=== PATIENT | female | born 2000 | race Two or more races ===

== ENCOUNTER 2019-09-17 08:10 | Day surgery (SDC) | payer OTHER ==
[2019-09-17] VITALS (9 sets, daily range): BP systolic 102–121; BP diastolic 56–80
[~2019-09-17] VITALS: Ht 165.1 cm; Wt 75.7 kg
--- NOTE | 2019-09-17 07:22 | Pre-Procedure Note/Attestation ---
Pre-Procedure Note/Attestation Complete Prior to Procedure Planned Procedure: left Procedure Narrative: knee diagnostic arthroscopy, possible menisectomy, synovectomy, chondroplasty Indications for Procedure Pre-Operative Diagnosis: left knee internal derangment Attestation I attest that I discussed the nature of the procedure; its benefits; risks and complications; and alternatives (and the risks and benefits of such alternatives ), prior to the procedure, with the patient (or the patient's legal residential sales representative). I attest that, if there was a reasonable possibility of needing a blood transfusion, the patient (or the patient's legal residential sales representative) was given the [facility] standardized written summary, pursuant to the [place] Blood Safety Act ([place] Health and Safety Code # 1645, as amended). I attest that I re-evaluated the patient just prior to the surgery and that there has been no change in the patient's H&P, except as documented below: Dixon Valdez MD Sep 17, 2019 07:22
--- NOTE | 2019-09-17 07:23 | Operative Note - PDOC ---
Operative Note Operative Note Pre-op Diagnosis: left knee internal derangment Procedure: see op report Post-op Diagnosis: same as pre-op plus Operative Findings: consistent w/pre-op dx studies Anesthesia: MAC Specimen: none Complications: none Condition: stable Estimated Blood Loss: none Implant(s) used?: No Dixon Valdez MD Sep 17, 2019 07:23
[~2019-09-17 08:10] MED LIST: D5 1/2NS 1,000 ML IV SCH; HYDROcodone/Acetamin 5/325 tab ORAL PRN; HYDROmorphone 1mg/ml Carpuject SUBQ PRN; Tylenol #3 tab (300mg/30mg) ORAL PRN; ceFAZolin 1gm IVPB IVPB ONE; oxyCONTIN 20mg tab ORAL ONE
[2019-09-17] MEDS ORDERED: oxyCONTIN 20mg tab ORAL ONE (10:29)
[2019-09-17] MEDS ORDERED: Ketorolac 30mg Inj ONE ×2 (12:32→14:06)
[2019-09-17] MEDS ORDERED: Kenalog-40 1ml Vial ONE (12:32)
[2019-09-17] MEDS ORDERED: Lidocaine 1% 10mg/ml/Epi 0.005mg/ml 30ml vial INJ ONE (12:33)
[2019-09-17] MEDS ORDERED: Duramorph PF 5mg/10ml amp ONE (12:33)
[2019-09-17] MEDS ORDERED: Bupivacaine 0.25% Inj 30ml INJ ONE (12:33)
[2019-09-17] MEDS ORDERED: Sodium Chloride 10ml vial INJ ONE (12:40)
[2019-09-17] MEDS ORDERED: fentaNYL 100 mcg/2 mL IV ONE (12:40)
[2019-09-17] MEDS ORDERED: Dexamethasone 4mg/ml vial ONE (12:40)
[2019-09-17] MEDS ORDERED: Propofol 200mg/20ml IV ONE (12:40)
[2019-09-17] MEDS ORDERED: Lidocaine 1% MPF 10mg/ml 5ml ONE (12:40)
[2019-09-17] MEDS ORDERED: LR 1000ml 1,000 ML IVLG SCH (12:56)
[2019-09-17] MEDS ORDERED: Metoclopramide 10mg/2ml Inj IVP PRN (13:00)
[2019-09-17] MEDS ORDERED: Labetalol 5mg/ml 20ml vial IV PRN (13:00)
[2019-09-17] MEDS ORDERED: HYDROcodone/Acetamin 7.5/325 tab ORAL PRN (13:00)
[2019-09-17] MEDS ORDERED: DiphenhydrAMINE 50mg/ml Inj IVP PRN (13:00)
[2019-09-17] MEDS ORDERED: Ketorolac 30mg Inj IV PRN ×2 (13:00)
[2019-09-17] MEDS ORDERED: LR 1000ml ONE (13:00)
[2019-09-17] MEDS ORDERED: LORazepam Inj 2mg/ml 1ml IV PRN (13:00)
[2019-09-17] MEDS ORDERED: oxyCODONE HCL/Acetaminophen 5/325mg ORAL PRN (13:00)
[2019-09-17] MEDS ORDERED: Atropine Sulfate 0.4mg/ml inj IVP PRN (13:00)
[2019-09-17] MEDS ORDERED: Acetaminophen (Non formulary) 100 ML IV ONE (13:00)
[2019-09-17] MEDS ORDERED: Midazolam 2mg/2ml Inj IVP PRN (13:00)
[2019-09-17] MEDS ORDERED: HYDROcodone/Acetamin 5/325 tab ORAL PRN (13:00)
[2019-09-17] MEDS ORDERED: fentaNYL 100 mcg/2 mL IV PRN (13:00)
[2019-09-17] MEDS ORDERED: Hydromorphone 0.5mg/0.5ml inj IVP PRN (13:00)
[2019-09-17] MEDS ORDERED: NS Irrig 4000ml IRRIG ONE (13:03)
--- NOTE | 2019-09-17 13:03 | Anethesia Preoperative Eval ---
Anesthesia Pre-op PMH/ROS General Date of Evaluation: Sep 17, 2019 Time of Evaluation: 11:42 Anesthesiologist: Eric ASA Score: ASA 1 Mallampati Score Class I : Soft palate, uvula, fauces, pillars visible Class II: Soft palate, uvula, fauces visible Class III: Soft palate, base of uvula visible Class IV: Only hard plate visible Mallampati Classification: Class I Surgeon: Valdez Diagnosis: L Knee Pain Surgical Procedure: L Knee Arthroscopy Anesthesia History: none Family History: no anesthesia problems Allergies: Coded Allergies: SULFA (SULFONAMIDE ANTIBIOTICS) (Verified Allergy, Unknown, 09/16/19) Medications: see eMAR Patient NPO?: Yes Anesthesia Pre-op Phys. Exam Physician Exam Last Vital Signs Date Time Temp Pulse Resp B/P (MAP) Pulse Ox O2 Delivery O2 Flow Rate FiO2 09/17/19 10:14 Room Air 09/17/19 10:06 97.6 88 18 120/67 98 Constitutional: NAD Neurologic: CN 2-12 intact Cardiovascular: RRR Respiratory: CTA Gastrointestinal: S/NT/ND Airway Exam Mallampati Score: Class I MO: full ROM: full Teeth: intact Anesthesia Pre-op A/P Labs Urine Test Test 09/17/19 09:10 Urine HCG, Qualitative Negative (NEGATIVE) Pre-Antibiotics Dru gram Ancef IV Given Within 1 Hr of Incision: Yes Time Given: 12:51 Romel Reyes MD Sep 17, 2019 13:03
--- NOTE | 2019-09-17 13:04 | Immediate Post-Op Evaluation ---
Immediate Post-Op Evalulation Immediate Post-Op Evalulation Procedure: L Knee Arthroscopy Date of Evaluation: Sep 17, 2019 Time of Evaluation: 13:39 IV Fluids: 900 LR Blood Products: 0 Estimated Blood Loss: 9 Urinary Output: 0 Blood Pressure Systolic: 104 Blood Pressure Diastolic: 56 Pulse Rate: 102 Respiratory Rate: 16 O2 Sat by Pulse Oximetry: 100 Temperature (Fahrenheit): 98.7 Pain Score (1-10): 2 Nausea: No Vomiting: No Complications 0 Patient Status: awake, reacts, patent, none Hydration Status: adequate Dru Gram Ancef IV Given Within 1 Hr of Incision: Yes Time Given: 11:51 Romel Reyes MD Sep 17, 2019 13:04
--- NOTE | 2019-09-17 13:05 | 48 Hour Post Anesthesia Eval ---
Post Anesthesia Evaluation Procedure: L Knee Arthroscopy Date of Evaluation: Sep 17, 2019 Time of Evaluation: 15:47 Blood Pressure Systolic: 106 0: 62 Pulse Rate: 88 Respiratory Rate: 18 Temperature (Fahrenheit): 98.6 O2 Sat by Pulse Oximetry: 100 Airway: patent Nausea: No Vomiting: No Pain Intensity: 2 Hydration Status: adequate Cardiopulmonary Status: Stable Mental Status/LOC: patient returned to baseline Follow-up Care/Observations: 0 Post-Anesthesia Complications: 0 Follow-up care needed: ready to discharge Romel Reyes MD Sep 17, 2019 13:05
[2019-09-17] MEDS ORDERED: Meperidine 25mg/0.5ml Inj (FOR RIGORS ONLY) IV PRN (14:15)
--- NOTE | 2019-09-17 20:30 | Operative Note - Dictated ---
DATE OF OPERATION: 09/17/2019 PREOPERATIVE DIAGNOSIS: Left knee medial meniscus tear. POSTOPERATIVE DIAGNOSES: 1. Left knee intrameniscal degeneration posterior horn and medial meniscus. 2. Hypertrophic synovial tissue medial and lateral patellofemoral compartment. PROCEDURE: 1. Left knee diagnostic arthroscopy. 2. Synovectomy medial and lateral patellofemoral compartment. SURGEON: Dixon Valdez M.D. ANESTHESIA: MAC with local. INDICATION FOR PROCEDURE: The patient is a pleasant female, who had an MRI, which showed possible meniscal tear. She had continued symptoms, elected to undergo left knee diagnostic arthroscopy and possible medial meniscectomy. Risks, limitations, expectations, complications related to the procedure were discussed in detail. All questions were addressed. DESCRIPTION OF PROCEDURE: After informed consent was obtained, the patient was brought to the operating room. The patient was placed under monitored anesthesia control. Left knee was prepped and draped in a sterile manner. Time-out was performed. An inferolateral stab incision was then made. Trocar was introduced into the patellofemoral compartment. There was hypertrophic synovial tissue medial and lateral patellofemoral compartment. Medial compartment was then entered. There was hypertrophic synovial tissue making visualization somewhat difficult. Therefore, medial working portal was established. Synovectomy of the anterior compartment, medial compartment, intercondylar notch, lateral compartment was performed. Once this was done, the medial compartment was entered. Attention turned towards the posterior horn medial meniscus superior and inferiorly probed and did not show an obvious full-thickness tear. The ACL was probed and noted to be intact. Lateral compartment was entered, free of any meniscal chondral damage. At this point, the camera was repositioned into patellofemoral compartment and synovectomy of the patellofemoral compartment was completed. Once that was done, the instruments were removed. Portal sites were closed using 3-0 Monocryl sutures. Steri-Strips and a sterile dressing were applied. ESTIMATED BLOOD LOSS: None. COMPLICATIONS: None. SPECIMENS: None. IMPLANTS: None. Dixon Valdez M.D. DR: Devonte JOB#: [id number] CC: MARIO
== END 2019-09-17 15:20 | disposition home or self-care (01) ==
LOC: SUR 08:10
DX: M67.261 Synovial hypertrophy, not elsewhere classified, right lower leg (principal); Z88.2 Allergy status to sulfonamides
CPT/HCPCS: 29876; 81025; J0131; J0690; J1100; J1885; J2250; J2405; J2704; J3010; J3301; J3490; J7120; 94003; 94150